=== PATIENT | male | born 1980 | race Hispanic/Latino ===

== ENCOUNTER 2024-04-27 22:36 | Inpatient (IN) | payer BC ==
[2024-04-28 00:11] VITALS: BMI 34.7
[2024-04-28] MEDS: Sodium Chloride 0.9% 1,000 ML IV SCH ×2 (00:20→02:44)
[2024-04-28] MEDS ORDERED: Promethazine HCl 25 MG/ML VIAL IM PRN (01:57)
[2024-04-28] MEDS ORDERED: Ondansetron PF 4 MG/2 ML Vial IVP PRN (01:57)
[2024-04-28] MEDS ORDERED: traMADol HCl 50 MG TAB PO PRN ×2 (01:57→15:20)
[2024-04-28] MEDS ORDERED: Acetaminophen 325 MG TAB PO PRN (01:57)
[2024-04-28] MEDS: Morphine 4 MG/ML VIAL SLOW IVP PRN (04:59)
[2024-04-28 06:38] LABS: #Basophils 0.05 10x3/uL (0.0-0.2); %Basophils 0.7 % (0.0-1.0); %Eosinophils 2.2 % (0.0-10.0); %Lymphocytes 24.9 % (21.0-51.0); %Monocytes 8.9 % (0.0-10.0); %Neutrophils 63.2 % (42.0-75.0); Hematocrit 39.9 % (42.0-52.0); Hemoglobin 13.8 g/dL (14.0-18.0); Mean Corpuscular HGB CONC 34.6 g/dL (32.0-36.0); Mean Corpuscular Hemoglobin 31.2 pg (27.0-31.0); Mean Corpuscular Volume 90.1 fL (78.0-98.0); Mean Platelet Volume 9.7 fL (7.4-10.4); Platelet Count 202 10x3/uL (130-400); RBC Distribution Width 13.1 % (11.5-14.5); Red Blood Cell (RBC) Count 4.43 mill/uL (4.70-6.10)
[2024-04-28 07:05] LABS: Anion Gap 10 mmol/L (10-20); BUN (Urea Nitrogen) 14 mg/dL (8.9-20.6); Calc. Creatinine Clearance 193 mL/min (70-130); Calcium 8.6 mg/dL (7.8-10.44); Carbon Dioxide 23 mmol/L (22-29); Chloride 108 mmol/L (98-107); Estimated GFR 109; Glucose 87 mg/dL (70-105); Potassium 3.7 mmol/L (3.5-5.1); Sodium 137 mmol/L (136-145)
[2024-04-28] MEDS: Famotidine 20 MG TAB PO SCH (08:48)
[2024-04-28] MEDS ORDERED: Sodium Chloride 0.9% 100 ML ONE (11:34)
[2024-04-28] MEDS ORDERED: CEFAZOLIN 2 GM VIAL ONE (11:34)
[2024-04-28] MEDS ORDERED: Vancomycin 1 GM VIAL ONE (11:56)
[2024-04-28] MEDS ORDERED: PROPOFOL 20 ML ONE (12:00)
[2024-04-28] MEDS ORDERED: Rocuronium Bromide 10 MG/ML (10ML VIAL) ONE ×2 (12:00→12:01)
[2024-04-28] MEDS ORDERED: fentaNYL PF 100 MCG/2 ML SYRINGE ONE (12:00)
[2024-04-28] MEDS ORDERED: SUCCINYLCHOLINE/SOD CL,ISO/PF 200 MG/10 ML SYRINGE FS ONE ×2 (12:00→12:01)
[2024-04-28] MEDS ORDERED: Ondansetron PF 4 MG/2 ML Vial ONE (12:01)
[2024-04-28] MEDS ORDERED: Dexamethasone 20 MG/5 ML VIAL ONE (12:34)
[2024-04-28] MEDS ORDERED: Lidocaine 1% PF 5 ML VIAL ONE (12:34)
[2024-04-28] MEDS ORDERED: EPINEPHrine 1 MG/ML VIAL ONE (12:58)
[2024-04-28] MEDS ORDERED: Bupivacaine PF 0.5% 30 ML VIAL ONE (12:59)
[2024-04-28] MEDS ORDERED: PHENYLEPHRINE-NS 100 MCG/ML 10 ML SYRINGE ONE (13:53)
[2024-04-28] MEDS ORDERED: Glycopyrrolate 0.2 MG/ML 5 ML SYRINGE ONE (13:53)
[2024-04-28] MEDS ORDERED: NEOSTIGMINE 3 MG/3 ML SYRINGE ONE (13:53)
[2024-04-28] MEDS ORDERED: fentaNYL 50 mcg/mL 1 mL Vial ONE (14:03)
[2024-04-28] MEDS ORDERED: Ketorolac Tromethamine 30 MG (1 mL) VIAL ONE (14:26)
[2024-04-28] MEDS ORDERED: HYDROcodone/Acetaminophen 10/325 mg Tablet PO PRN ×2 (14:37)
[2024-04-28] MEDS ORDERED: RENALLY ADJUST ABX FS PRN (14:45)
[2024-04-28] MEDS ORDERED: HYDROmorphone 0.5 MG/0.5 ML SYRINGE ONE (14:48)
[2024-04-28] MEDS: Morphine 2 MG/ML VIAL SLOW IVP PRN (16:55)
[2024-04-28] MEDS: Acetaminophen 500 MG TAB PO SCH (16:55)
[2024-04-28] MEDS ORDERED: traMADol HCl 50 MG TAB PO SCH (18:00)
[2024-04-28] MEDS ORDERED: Acetaminophen/Codeine 30-300mg Tablet PO SCH (18:15)
[2024-04-28] MEDS: CEFAZOLIN 2 GM in Sodium Chloride 0.9% 100 ML IVPB SCH (19:27)
[2024-04-28] MEDS: Ketorolac Tromethamine 30 MG (1 mL) VIAL IVP SCH (21:43)
[2024-04-28] MEDS: Aspirin 81 mg Enteric Coated Tablet PO SCH (21:45)
[2024-04-28] MEDS: HYDROcodone/Acetaminophen 10/325 mg Tablet PO PRN (22:56)
[2024-04-28] MEDS ORDERED: Acetaminophen 325 MG TAB PO SCH (23:59)
[2024-04-29] MEDS: Acetaminophen/Codeine 30-300mg Tablet PO SCH (00:42)
[2024-04-29 07:49] VITALS: TEMP 97.9
[2024-04-29] MEDS: HYDROcodone/Acetaminophen 10/325 mg Tablet PO PRN (08:01)
[2024-04-29 11:54] VITALS: BP 133/75
[2024-04-29] MEDS: Enoxaparin 40 MG (0.4 mL) SYRINGE SC SCH (14:08)
== END 2024-04-29 11:18 | disposition home or self-care (01) | DRG 494 ==
LOC: OBSVTOIN 23:19 → SJJU 23:19
PROVIDERS: ADMIT Student in an Organized Health Care Education/Training Program; ATTEND Student in an Organized Health Care Education/Training Program
PROC: 0QSK04Z Reposition Left Fibula with Internal Fixation Device, Open Approach (ICD-10-PCS; principal; 2024-04-28)
PROC: 0QSH04Z Reposition Left Tibia with Internal Fixation Device, Open Approach (ICD-10-PCS; 2024-04-28)
PROC: 0QPK04Z Removal of Internal Fixation Device from Left Fibula, Open Approach (ICD-10-PCS; 2024-04-28)
DX: S82.392A Other fracture of lower end of left tibia, initial encounter for closed fracture (principal); I10 Essential (primary) hypertension; F17.210 Nicotine dependence, cigarettes, uncomplicated; S82.832A Other fracture of upper and lower end of left fibula, initial encounter for closed fracture; W18.30XA Fall on same level, unspecified, initial encounter; Y93.K1 Activity, walking an animal; Y92.89 Other specified places as the place of occurrence of the external cause; Z88.5 Allergy status to narcotic agent; S82.302A Unspecified fracture of lower end of left tibia, initial encounter for closed fracture
CPT/HCPCS: 25565; 36415; 80048; 80053; 85025; 93005; 96374; C1713; C1874; J0171; J0665; J1100; J1170; J1885; J2270; J2272; J2405; J2704; J3010; J3370; J3490; J7050

== ENCOUNTER 2024-05-19 14:50 | Emergency (ER) | payer BC | END 2024-05-19 17:15 | disposition home or self-care (01) | LOC: ERS 14:50 | DX: M25.572 Pain in left ankle and joints of left foot (principal); F17.210 Nicotine dependence, cigarettes, uncomplicated; X50.1XXA Overexertion from prolonged static or awkward postures, initial encounter ==